=== PATIENT | female | born 1950 | race Caucasian/White ===

== ENCOUNTER → 2017-03-08 | Day surgery (SDC) | payer MEDICARE ==
[~2017-03-08] MED LIST: CHOL500016 PO; HYDROmorphone 2 MG/ML VIAL IV PRN; IV RINGERS,LACTATED 1000ML 1,000 ML IV SCH; LIDOCAINE 1% PF 2 ML VIAL. ID PRN; LISI30TA4 PO; LISI40TA PO; MORPHINE SULFATE 2 MG/ML DISP.SYRIN. IV PRN; ONDANSETRON PF 4 MG/2 ML VIAL. IV PRN; PROCHLORPERAZINE 10 MG/2 ML VIAL. IV PRN; PROPOFOL 20 ML IV ONE; TAMO20TA PO; fentaNYL PF VIAL 100 MCG/2 ML VIAL IV PRN
[2017-03-08 07:58] VITALS: BP 142/87
== END | disposition home or self-care (01) ==
LOC: ENDOS 05:54
PROVIDERS: ATTEND Internal Medicine Gastroenterology
DX: Z09 Encounter for follow-up examination after completed treatment for conditions other than malignant neoplasm (principal); Z86.010 Personal history of colon polyps; K64.0 First degree hemorrhoids; Z90.49 Acquired absence of other specified parts of digestive tract; Z90.710 Acquired absence of both cervix and uterus
CPT/HCPCS: 45378; J2704